=== PATIENT | female | born 1955 | race Caucasian/White ===

== ENCOUNTER → 2018-07-23 07:44 | Outpatient (CLI) | payer OTHER, SELFPAY ==
--- NOTE | 2018-07-23 | DI.MG.S_ITS ---
BILATERAL DIGITAL SCREENING MAMMOGRAM 3D/2D WITH CAD: 07/23/2018 CLINICAL: Routine screening. Comparison is made to exams dated: 06/21/2017 mammogram, 06/10/2015 mammogram, and 08/10/2013 mammogram - [facility]. The tissue of both breasts is heterogeneously dense. This may lower the sensitivity of mammography. Current study was also evaluated with a Computer Aided Detection (CAD) system. No significant masses, calcifications, or other findings are seen in either breast. There has been no significant interval change. IMPRESSION: NEGATIVE There is no mammographic evidence of malignancy. A 1 year screening mammogram is recommended. This exam was interpreted at Station ID: [id number]. NOTE: For mammograms, a report in lay terms will be sent to the patient. Approximately 15% of breast malignancies will not be visualized mammographically. In the management of a palpable breast mass, a negative mammogram must not discourage biopsy of a clinically suspicious lesion. Electronically Signed By: Gerardo young/hellen:07/23/2018 09:48:17 copy to: EARNEST PUENTES copy to: Magaly Spencer letter sent: Normal Exam ACR BI-RADS Category 1: Negative [id number]
== END ==
PROVIDERS: PCP Internal Medicine; Visit Provider Naturopath
DX: Z12.31 Encounter for screening mammogram for malignant neoplasm of breast (principal)
CPT/HCPCS: 77063; 77067

== ENCOUNTER → 2018-11-12 08:02 | Outpatient (CLI) | payer OTHER, SELFPAY ==
[2018-11-12 08:56] LABS: Add Manual Diff / Slide Review NO; Basophils Absolute Auto 0 /uL (0-100); Basophils Percent Auto 0.6 % (0-2); Eosinophils Absolute Auto 100 /uL (0-450); Eosinophils Percent Auto 1.8 % (2-4); Hematocrit 37.2 % (36-46); Hemoglobin 12.5 g/dL (12.0-16.0); Lymphocytes Absolute Auto 1600 /uL (1100-4500); Lymphocytes Percent Auto 39.8 % (25-40); Mean Corpuscular HGB Conc 33.6 % (30-36); Mean Corpuscular Hemoglobin 28.8 PG (26-34); Mean Corpuscular Volume 85.7 fL (80-100); Monocytes Absolute Auto 400 /uL (0-900); Monocytes Percent Auto 8.6 % (3-14); Neutrophils Absolute Auto 2000 /uL (1500-7000); Neutrophils Percent Auto 49.2 % (50-75); Platelet Count 212 X10^3/uL (150-400); Red Blood Cell Count 4.35 X10^6/uL (4.0-5.2); Red Cell Distribution Width 13.6 % (11.6-14.8); White Blood Cell Count 4.1 X10^3/uL (4.5-11.0)
[2018-11-12 09:35] LABS: Alanine Aminotransferase 51 IU/L (9-52); Albumin 4.3 g/dL (3.5-5.0); Albumin Globulin Ratio 1.3 (1.0-2.8); Alkaline Phosphatase 71 U/L (38-126); Aspartate Aminotransferase 42 IU/L (14-36); Bilirubin Total 0.4 mg/dL (0.2-1.3); Blood Urea Nitrogen 16 mg/dL (7-17); Calcium 9.8 mg/dL (8.4-10.2); Carbon Dioxide 28 mmol/L (22-32); Chloride 101 mmol/L (98-107); Cholesterol 178 mg/dL (140-199); Estimated Glomerular Filt Rate > 60.0 mL/min (>60); Globulin 3.2 g/dL (1.7-4.1); Glucose 81 mg/dL (80-110); HEMOLYSIS < 15 (0-50); Potassium 4.4 mmol/L (3.4-5.1); Total Protein 7.5 g/dL (6.3-8.2); Triglycerides 79 mg/dL (35-150)
[2018-11-12 09:37] LABS: HDL Cholesterol 69 mg/dL (40-60); LDL Cholesterol Calculated 93 mg/dL (<100); Sodium 137 mmol/L (137-145)
[2018-11-12 10:11] LABS: Free T3, Triiodothyronine Free 3.06 pg/mL (2.77-5.27); Free T4, Direct Thyroxine 0.68 ng/dL (0.78-2.19)
[2018-11-12 10:25] LABS: Thyroid Stimulating Hormone 1.93 uIU/mL (0.47-4.68)
== END ==
PROVIDERS: PCP Internal Medicine; Visit Provider Naturopath
DX: Z00.00 Encounter for general adult medical examination without abnormal findings (principal); E03.9 Hypothyroidism, unspecified
CPT/HCPCS: 36415; 80053; 80061; 84439; 84443; 84481; 85025

== ENCOUNTER 2018-11-14 08:24 | Day surgery (SDC) | payer OTHER, SELFPAY ==
[2018-11-14 08:54] VITALS: BMI 19.8
[2018-11-14 09:03] VITALS: BP 125/80; PULSE 87; RESP 15; TEMP 36.8; O2SAT 99
[2018-11-14] MEDS: SODIUM CHLORIDE 0.9% 1,000 ML 200 ML IV (09:05)
[2018-11-14] MEDS: MIDAZOLAM 5 MG/5 ML VIAL IV (10:05)
[2018-11-14] MEDS: fentaNYL 250 MCG/5 ML INJ IV (10:06)
--- NOTE | 2018-11-14 10:29 | PM.HP.1 ---
History of Present Illness Date Patient Seen: 11/14/18 Time Patient Seen: 10:22 Chief complaint: Colonoscopy Narrative: Patient is a woman here for a screening colonoscopy. Her last exam was 6 years ago. She has a history of polyps. No family history of colon cancer. Patient History Surgical History History of cataract removal with insertion of prosthetic lens History of third molar tooth extraction Status post hemorrhoidectomy Status post parathyroidectomy Status post tubal ligation Status post vaginal hysterectomy (08/01/15) Meds Home Medications Medication Instructions Recorded Confirmed Type multivitamin 1 tab PO DAILY #0 10/20/11 11/14/18 History Alphagan P 1 drp EYE-LEFT BID #0 08/05/16 11/14/18 History Nature-Throid 97.5 mg PO DAILY #0 08/05/16 11/14/18 History Xolegel 1 nichole TOPICAL DAILY PRN #0 08/05/16 11/14/18 History albuterol sulfate [Ventolin HFA] 2 puff INH Q4HP PRN #1 inh 08/05/16 11/14/18 Rx [CMP ESTRADIOL] 0.2 % VAGINAL SEE INSTRUCTIONS #30 09/23/17 Rx gm estradiol 25 mcg VAGINAL WEEKLY 11/14/18 11/14/18 History oxytocin 1 spray 11/14/18 History sertraline 25 mg PO DAILY 11/14/18 11/14/18 History Allergies Allergy/AdvReac Type Severity Reaction Status Date / Time minocycline Allergy Severe headach, Verified 11/14/18 08:44 nausea, hearing loss NSAIDS (Non-Steroidal Allergy Severe HIVES, Verified 11/14/18 08:44 Anti-Inflamma LIP/EYE/FACIAL SWELLING, CHEST TIGHTNESS hydrocodone [HYDROCODONE] Allergy Intermediate NAUSEA, Verified 11/14/18 08:44 DOES NOT WORK AGAINST PAIN adhesive tape [ADHESIVE TAPE] Allergy Mild rash Verified 11/14/18 08:44 aspirin Allergy Mild HIVES Verified 11/14/18 08:44 gluten Allergy Mild INTOLERANT Verified 11/14/18 08:44 guaifenesin AdvReac Severe NAUSEA/DIZZ Verified 11/14/18 08:44 Y tramadol [TRAMADOL] AdvReac Unknown SHALLOW Verified 11/14/18 08:44 BREATHING NAUSEA VOMITING VERTIGO Review of Systems Review of Systems All systems reviewed & are unremarkable except as noted in HPI and below Respiratory Comments: Has breathing issues when she gets respiratory tract infection and has to use an inhaler Gastrointestinal Comments: Severe nausea after anesthesia Endocrine Comments: Hypothyroid and hyperparathyroidism treated in the past Exam Vital Signs (past 8 hours): - 11/14/18 09:03 Temperature 98.3 F Pulse Rate 87 Respiratory Rate 15 Blood Pressure 125/80 Pulse Oximetry 99 Oxygen Delivery Method Room Air Narrative Exam Narrative: Very thin cooperative woman in no apparent distress. Her lungs are clear to auscultation no rales or rhonchi heart regular rate and rhythm without murmur gallop. Abdomen is scaphoid soft nontender without mass. Patient is alert and oriented x3. Assessment & Plan Assessment & Plan narrative: Patient for a screening colonoscopy. She has personal history of polyps. I have discussed the procedure and the rationale with the patient including risks of bleeding, perforation which would necessitate a major operation, failure to find remove all lesions and the potential to tattoo. They appeared to understand and wished to proceed.
[2018-11-14] MEDS: ONDANSETRON 4 MG/2 ML INJ IV (10:30)
[2018-11-14] MEDS: SCOPOLAMINE 1 PATCH TOP (10:31)
--- NOTE | 2018-11-14 11:06 | PM.OP.ENDO ---
Operative Date/Time/Diagnoses Date of procedure: 11/14/18 Time of procedure: 11:07 Pre-op diagnosis: Screening exam. Last colonoscopy 6 years ago. Personal history of polyps. Post-op diagnosis: same (Sigmoid diverticulosis occasional. Very tortuous colon) Procedure & Clinicians Study performed: Colonoscopy Same procedure as scheduled: Yes Indications: Screening Surgeon: Gerardo Marinelli Procedure Notes SCOAP/Timeout: Performed Procedure in detail: The patient was placed in the left lateral decubitus position and underwent IV sedation directed by the surgeon consisting of fentanyl and Versed. Digital exam was unremarkable. The scope was inserted and advanced through the rectum into the sigmoid, descending, transverse, and ascending colon. The colon was quite tortuous and I did note some diverticulosis within the sigmoid. The cecum was reached identified by the ileocecal valve and the appendiceal opening. The ileocecal valve was successfully cannulated. The terminal ileum was normal in appearance. The scope was gradually brought out. No Polyps were found. The scope ultimately was retroflexed in the rectum. The appearance was normal. The scope was removed and the patient tolerated the procedure well. prep was good. Scope withdrawal time: 12 minutes Sedation minutes: 28 Findings: diverticulosis Specimen(s): none sent Complications: none Recommendations: Colonscopy in 5 years (Due to personal history of polyps) Follow up: as needed Disposition: PACU
[2018-11-14 11:08] VITALS: BP 114/71; PULSE 85; RESP 16; TEMP 36.3; O2SAT 96
[2018-11-14 11:13] VITALS: BP 112/74; PULSE 73; RESP 12; O2SAT 96
[2018-11-14 11:18] VITALS: BP 109/75; PULSE 80; RESP 15; O2SAT 98
[2018-11-14 11:30] VITALS: BP 116/74; PULSE 68; RESP 16; TEMP 36.5; O2SAT 95
[2018-11-14 11:55] VITALS: BP 109/70; PULSE 69; RESP 15; TEMP 36.4; O2SAT 95
--- NOTE | 2018-11-14 12:50 | SUR.PHASEII ---
1210 pt dressed, steady on feet ready to go home
--- NOTE | 2018-11-14 12:51 | SUR.PHASEII ---
1130 pt resting, taking fluids, no co's
== END 2018-11-14 12:10 | disposition home or self-care (01) ==
PROVIDERS: PCP Naturopath; Visit Provider Specialist
PROC: 0DJD8ZZ Inspection of Lower Intestinal Tract, Via Natural or Artificial Opening Endoscopic (ICD-10-PCS; CPT 45378; principal; 2018-11-14 09:45)
DX: Z86.010 Personal history of colon polyps (principal); K57.30 Diverticulosis of large intestine without perforation or abscess without bleeding
CPT/HCPCS: 45378; 99152; 99153; J2250; J2405; J3010

== ENCOUNTER → 2018-11-28 07:16 | Outpatient (CLI) | payer OTHER, SELFPAY ==
--- NOTE | 2018-11-28 | DI.US.S_ITS ---
PROCEDURE: US ABDOMEN LIMITED INDICATIONS: ABNORMAL LIVER FUNCTION TESTS TECHNIQUE: Real-time focused scanning was performed of the liver only at clinician request, with image documentation. COMPARISON: [facility], [place], ABDOMEN LIMITED, 03/20/2011, 11:04. [facility], [place], ABDOMEN LIMITED, 03/21/2010, 9:07. FINDINGS: The liver is normal in craniocaudad length with a maximal dimension of 15.2 cm. At the posterior right hepatic lobe there is a echogenic small structure measuring 1.3 x 0.9 x 0.9 cm previously measuring 1.4 x 1.4 x 1.1 cm 03/20/11, and there is a simple cyst found measuring only 8 mm in the posterior right hepatic lobe and a second 7 mm cyst in the lateral left hepatic lobe. IMPRESSION: The echogenic focus, presumably a small hemangioma, within the right posterior hepatic segment was present in March of 2011 without significant exchange operator time. 2 incidentally noted simple cysts measuring only 8 mm in maximal dimension are also seen. No biliary distention is found, and a definite source of abnormal liver function tests is not identified. Dictated by: Rasta Scherer M.D. on 11/28/2018 at 8:24 Approved by: Rasta Scherer M.D. on 11/28/2018 at 8:27
== END ==
PROVIDERS: PCP Naturopath; Visit Provider Naturopath
DX: R94.5 Abnormal results of liver function studies (principal); K76.89 Other specified diseases of liver
CPT/HCPCS: 76705

== ENCOUNTER 2019-05-14 16:00 | Outpatient (RCR) | payer OTHER, SELFPAY ==
--- NOTE | 2019-04-14 17:40 | PT.OIE ---
Current Diagnoses Other female genital prolapse (04/14/19) Past Surgical History (Last Reviewed 11/14/18 @ 10:29 by Gerardo Marinelli MD) History of cataract removal with insertion of prosthetic lens History of third molar tooth extraction Status post hemorrhoidectomy Status post parathyroidectomy Status post tubal ligation Status post vaginal hysterectomy (08/01/15) Provider Visit Care Team Role Provider Type Angelika Casas ND Primary Care Provider Non-Staff Specialty: Naturopathy Address: [address] [place] [id number] Email: Magaly Spencer MD Attending Provider Physician Specialty: MANAGER CHINESE Address: [address] [place] [address], [id number] Email: [email or web address] Physical Therapy Initial Evaluation PT-OP-A Visit Information Start: 04/07/19 14:28 Freq: Status: Active Protocol: Document 04/07/19 17:14 [facility] (Rec: 04/14/19 17:38 [facility] [email or web address]) Out-Patient Physical Therapy Visit Information Visit Information Visit Type Initial Evaluation Visit Note 64 year old female s/o total hysterectomy and anterior posterior repair 07/22/15 who is now experiencing pelvic heaviness again and cystecele that began this past year. Visit Start Time 16:00 Visit Stop Time 16:45 Total Visit Minutes 45 Visit Number 1 Evaluation Information Evaluation Date 04/07/19 PT-OP-B Current Condition Start: 04/07/19 14:28 Freq: Status: Active Protocol: Document 04/07/19 17:14 [facility] (Rec: 04/14/19 17:38 [facility] [email or web address]) Current Condition History of Current Condition Onset Date August 2018 Current Complaints pelvic heaviness, pressure, urgency, frequent voiding History of Current Condition Andressa is a 64 year old female who was seen previously in PT in 2016 after her hysterectomy and anterior posterior repair. At that time she did well with PT and felt her pelvic floor was much stronger. She was sexually active and remarried. Unfortunatly her last year and she stopped exercising with her grief and her muscles began weakening. She started noticing the bladder bulge and pelvic heaviness again this past winter. Her goals include strengthening her pelvic floor and reducing pelvic pressure as she would like to get active again. Other past medical history includes asthma, history of back and neck pain, thyroid disorder, dizziness, blood clots, osteopenia Current Functional Impairments (Reported) Functional Limitations- ADL's limited with any ADL's that require lifting, frequent urination and urgency PT-OP-C Subjective Start: 04/07/19 14:28 Freq: Status: Active Protocol: Document 04/07/19 17:14 [facility] (Rec: 04/14/19 17:38 [facility] [id number]) Patient Questionnaires Pelvic Pain and Urgency/Frequency Patient Symptom Scale Pelvic Pain Score 12 OP-PT Pain Assessment Pain Assessment Grid Paper Pain Assessment Grid Completed Yes Location pelvic floor Pain Location Details pelvic floor pressure Intensity 2 Scale Used Numeric (1 - 10) Description Aching Tightness Frequency Frequent Pain Aggravating Factors ADL's Exercise Standing Walking Other Pain Aggravating Factors lifting PT-OP-I Pelvic Floor Start: 04/07/19 14:28 Freq: Status: Active Protocol: Document 04/07/19 17:14 [facility] (Rec: 04/14/19 17:38 [facility] [email or web address]) Pelvic Floor Assessment Urine Pelvic Floor Surgery Yes Urinary Symptoms Urge Sensation Incomplete Emptying Leakage Size Small Leakage Cause Cough Urge Voiding Frequency every hour Pelvic Clock Pelvic Clock 12-3 Atrophy Pelvic Clock 3-6 Atrophy Pelvic Clock 6-9 Atrophy Pelvic Clock 9-12 Atrophy Prolapse Cystocele Grade 2 SEMG (uV) Baseline 1.5 10 Second Contraction 10.0 Recruitment Pattern Fair Relaxation Fair Holding Fair Stability of Hold Fair SEMG Stability of Rest Fair Contraction Ability Voluntary Contraction Weak Voluntary Relaxation Weak Manual Muscle Testing Left 4 Manual Muscle Testing Right 3 Manual Muscle Testing Anterior 3 Manual Muscle Testing Posterior 2 Muscle Endurance (Seconds) 6 Comments Pelvic Floor Comments posterior wall weakness and decreased endurance PT-OP-Q Treatments Start: 04/14/19 17:39 Freq: Status: Active Protocol: Document 04/07/19 16:00 [facility] (Rec: 04/14/19 17:40 [facility] [email or web address]) Therapeutic Exercises Supine Exercises 2 Supine Exercise Name roll ins with ball Reps/Minutes x 10 1 Supine Exercise Name pelvic floor long holds Reps/Minutes x 10 PT-OP-T Assessment and Plan Start: 04/07/19 14:28 Freq: Status: Active Protocol: Document 04/07/19 17:14 [facility] (Rec: 04/14/19 17:38 [facility] [email or web address]) Physical Therapy Assessment Goals Three Impairment pelvic pressure/heaviness and pain 2/10 Manager [place] Goal (LTG) Andressa has overall reduced c/ o pelvic pressure and pain and is no longer c/o heaviness Two Impairment Decreased pelvic floor endurance Short Term Goal (STG) Andressa is able to sustain a contraction x 10 seconds in supine STG Duration 4 weeks Manager [place] Goal (LTG) Andressa is able to sustain a contraction x 10 seconds in standing LTG Duration 8 weeks One Impairment pelvic floor weakness Manager [place] Goal (LTG) Improve pelvic floor strength to 4/5 MMT for all parts of the levator ani LTG Duration 8 weeks Assessment Summary Assessment Andressa presents to physical therapy today with symptoms of weakened pelvic floor and pelvic pressure and heaviness. She underwent a total hysterectomy and anterio/ posterior repair in July 2015. She did really after this and reports her symptoms of pelvic pressue were gone. She remaried during this time and was able to resume intercourse without any pain. Unfortunatly her new after a year and she went into a grieving period where she did not feel like exercising at all. This last winter is when she began to want to start exercising again. She took a class that involved fast abdominal exercises and this seemed to flare up her pelvic floor and the heaviness returned. With examination today she is a 3/ 5 MMT right side and anterior pelvic floor, a 4/5 MMT on the left lateral wall, and a 2/5 in the posterior wall. She lacks endurance of her pelvic floor. She is also c/o urgency and frequency voiding. Treatment will focus on pelvic floor strengthening, endurance training, and lower abdominal stabilization without straining down on her pelvic floor Physical Therapy Plan Frequency and Duration Frequency of Treatment 1x/Week Duration of Treatment 8 Plan of Care Start Date 04/07/19 Plan of Care End Date 06/09/19 Therapeutic Interventions Therapeutic Interventions Home Exercise Program Manual Therapy Neuromuscular Re-education Patient/Caregiver Education Self-Care/Home Management Soft Tissue Mobilization Therapeutic Exercises Modalities Biofeedback
--- NOTE | 2019-04-14 17:40 | PT.OPPOC ---
Current Diagnoses Other female genital prolapse (04/14/19) Provider Visit Care Team Role Provider Type Angelika Casas ND Primary Care Provider Non-Staff Specialty: Naturopathy Address: [address] [place] [address], [address] Email: Magaly Spencer MD Attending Provider Physician Specialty: CHIEF POWER DISPATCHER Address: [address] [place] [address], [address] Email: [email or web address] Plan Of Care PT-OP-T Assessment and Plan Start: 04/07/19 14:28 Freq: Status: Active Protocol: Document 04/07/19 17:14 [facility] (Rec: 04/14/19 17:38 [facility] [email or web address]) Physical Therapy Assessment Goals Three Impairment pelvic pressure/heaviness and pain 2/10 Eligibility Analyst Goal (LTG) Andressa has overall reduced c/ o pelvic pressure and pain and is no longer c/o heaviness Two Impairment Decreased pelvic floor endurance Short Term Goal (STG) Andressa is able to sustain a contraction x 10 seconds in supine STG Duration 4 weeks Jail Goal (LTG) Andressa is able to sustain a contraction x 10 seconds in standing LTG Duration 8 weeks One Impairment pelvic floor weakness Jail Goal (LTG) Improve pelvic floor strength to 4/5 MMT for all parts of the levator ani LTG Duration 8 weeks Assessment Summary Assessment Andressa presents to physical therapy today with symptoms of weakened pelvic floor and pelvic pressure and heaviness. She underwent a total hysterectomy and anterior posterior repair in July 2015. She did really after this and reports her symptoms of pelvic pressure were gone. She remarried during this time and was able to resume intercourse without any pain. Unfortunately her new after a year and she went into a grieving period where she did not feel like exercising at all. This last winter is when she began to want to start exercising again. She took a class that involved fast abdominal exercises and this seemed to flare up her pelvic floor and the heaviness returned. With examination today she is a 3/ 5 MMT right side and anterior pelvic floor, a 4/5 MMT on the left lateral wall, and a 2/5 in the posterior wall. She lacks endurance of her pelvic floor. She is also c/o urgency and frequency voiding. Treatment will focus on pelvic floor strengthening, endurance training, and lower abdominal stabilization without straining down on her pelvic floor Physical Therapy Plan Frequency and Duration Frequency of Treatment 1x/Week Duration of Treatment 8 Plan of Care Start Date 04/07/19 Plan of Care End Date 06/09/19 Therapeutic Interventions Therapeutic Interventions Home Exercise Program Manual Therapy Neuromuscular Re-education Patient/Caregiver Education Self-Care/Home Management Soft Tissue Mobilization Therapeutic Exercises Modalities Biofeedback Plan of Care Dates Plan of Care Start Date 04/07/19 Plan of Care End Date 06/09/19 Please Sign and Return: I have reviewed this Plan of Care and certify that the skilled therapy services above are required to meet the patient?s needs. Physician Signature Date Printed Name and Credentials Clinical Instructor Signature Printed Name and Credentials
--- NOTE | 2019-04-15 10:16 | PT.OTN ---
Current Diagnoses Other female genital prolapse (04/14/19) Physical Therapy Treatment Note PT-OP-A Visit Information Start: 04/07/19 14:28 Freq: Status: Active Protocol: Document 04/14/19 16:00 [facility] (Rec: 04/15/19 10:11 [facility] [id number]) Out-Patient Physical Therapy Visit Information Visit Information Visit Type Treatment Note Visit Start Time 16:00 Visit Stop Time 16:45 Total Visit Minutes 45 Visit Number 2 PT-OP-B Current Condition Start: 04/07/19 14:28 Freq: Status: Active Protocol: Document 04/07/19 17:14 [facility] (Rec: 04/14/19 17:38 [facility] [email or web address]) Current Condition History of Current Condition Onset Date August 2018 Current Complaints pelvic heaviness, pressure, urgency, frequent voiding History of Current Condition Andressa is a 64 year old female who was seen previously in PT in 2015 after her hysterectomy and anterior posterior repair. At that time she did well with PT and felt her pelvic floor was much stronger. She was sexually active and remarried. Unfortunatly her last year and she stopped exercising with her grief and her muscles began weakening. She started noticing the bladder bulge and pelvic heaviness again this past winter. Her goals include strengthening her pelvic floor and reducing pelvic pressure as she would like to get active again. Other past medical history includes asthma, history of back and neck pain, thyroid disorder, dizziness, blood clots, osteopenia Current Functional Impairments (Reported) Functional Limitations- ADL's limited with any ADL's that require lifting, frequent urination and urgency PT-OP-C Subjective Start: 04/07/19 14:28 Freq: Status: Active Protocol: Document 04/14/19 16:00 [facility] (Rec: 04/15/19 10:11 [facility] [id number]) OP-PT Subjective Patient Comments Patient Comments Andressa reports she is tryingto get back into a routine with her exercises PT-OP-I Pelvic Floor Start: 04/07/19 14:28 Freq: Status: Active Protocol: Document 04/07/19 17:14 [facility] (Rec: 04/14/19 17:38 [facility] [email or web address]) Pelvic Floor Assessment Urine Pelvic Floor Surgery Yes Urinary Symptoms Urge Sensation,Incomplete Emptying Leakage Size Small Leakage Cause Cough,Urge Voiding Frequency every hour Pelvic Clock Pelvic Clock 12-3 Atrophy Pelvic Clock 3-6 Atrophy Pelvic Clock 6-9 Atrophy Pelvic Clock 9-12 Atrophy Prolapse Cystocele Grade 2 SEMG (uV) Baseline 1.5 10 Second Contraction 10.0 Recruitment Pattern Fair Relaxation Fair Holding Fair Stability of Hold Fair SEMG Stability of Rest Fair Contraction Ability Voluntary Contraction Weak Voluntary Relaxation Weak Manual Muscle Testing Left 4 Manual Muscle Testing Right 3 Manual Muscle Testing Anterior 3 Manual Muscle Testing Posterior 2 Muscle Endurance (Seconds) 6 Comments Pelvic Floor Comments posterior wall weakness and decreased endurance PT-OP-Q Treatments Start: 04/14/19 17:39 Freq: Status: Active Protocol: Document 04/14/19 16:00 [facility] (Rec: 04/15/19 10:14 [facility] [id number]) Therapeutic Exercises Supine Exercises 5 Supine Exercise Name templates for eccentric control and coordination 4 Supine Exercise Name quick pelvic floor contractions Reps/Minutes 2 x 10 reps 3 Supine Exercise Name Roll outs with theraband Reps/Minutes 3 x 10 reps 2 Supine Exercise Name roll ins with ball Reps/Minutes 3 x 10 1 Supine Exercise Name pelvic floor long holds Reps/Minutes x 10 Sidelying Exercises 1 Sidelying Exercise Name clam shell Reps/Minutes 3 x 10 reps Neuro Re-Education Treatment Other Activities 1 Details EMG biofeedback neuromuscular awareness of pelvic floor contractions Comments relaxed awareness with resting tone, luther template for contraction of the anterior pelvic floor Self-Care/Home Management Treatment Education Patient Education Home Exercise Program PT-OP-T Assessment and Plan Start: 04/07/19 14:28 Freq: Status: Active Protocol: Document 04/14/19 16:00 [facility] (Rec: 04/15/19 10:11 [facility] [id number]) Physical Therapy Assessment Assessment Summary Assessment Some increase in endurance today, quick contractions are difficult to do in 2 seconds. Added in eccentric control and coordination Physical Therapy Plan Frequency and Duration Frequency of Treatment 1x/Week Duration of Treatment 8 Plan of Care Start Date 04/07/19 Plan of Care End Date 06/09/19 Next Visit Focus/Plan Next Note Type Treatment Note Next Visit Plan progress pelvic floor endurance, cat cow and TA facilitation techniques
--- NOTE | 2019-04-26 20:31 | PT.OTN ---
Current Diagnoses Other female genital prolapse (04/23/19) Physical Therapy Treatment Note PT-OP-A Visit Information Start: 04/07/19 14:28 Freq: Status: Active Protocol: Document 04/23/19 16:00 [facility] (Rec: 04/26/19 20:31 [facility] [email or web address]) Out-Patient Physical Therapy Visit Information Visit Information Visit Type Treatment Note Visit Start Time 16:00 Visit Stop Time 16:45 Total Visit Minutes 45 Visit Number 3 PT-OP-B Current Condition Start: 04/07/19 14:28 Freq: Status: Active Protocol: Document 04/07/19 17:14 [facility] (Rec: 04/14/19 17:38 [facility] [id number]) Current Condition History of Current Condition Onset Date August 2018 Current Complaints pelvic heaviness, pressure, urgency, frequent voiding History of Current Condition Andressa is a 64 year old female who was seen previously in PT in 2015 after her hysterectomy and anterior posterior repair. At that time she did well with PT and felt her pelvic floor was much stronger. She was sexually active and remarried. Unfortunatly her last year and she stopped exercising with her grief and her muscles began weakening. She started noticing the bladder bulge and pelvic heaviness again this past winter. Her goals include strengthening her pelvic floor and reducing pelvic pressure as she would like to get active again. Other past medical history includes asthma, history of back and neck pain, thyroid disorder, dizziness, blood clots, osteopenia Current Functional Impairments (Reported) Functional Limitations- ADL's limited with any ADL's that require lifting, frequent urination and urgency PT-OP-C Subjective Start: 04/07/19 14:28 Freq: Status: Active Protocol: Document 04/23/19 16:00 [facility] (Rec: 04/26/19 20:31 [facility] [email or web address]) OP-PT Subjective Patient Comments Patient Comments has been doing legs up the wall stretch and her exercises PT-OP-I Pelvic Floor Start: 04/07/19 14:28 Freq: Status: Active Protocol: Document 04/07/19 17:14 [facility] (Rec: 04/14/19 17:38 [facility] [email or web address]) Pelvic Floor Assessment Urine Pelvic Floor Surgery Yes Urinary Symptoms Urge Sensation,Incomplete Emptying Leakage Size Small Leakage Cause Cough,Urge Voiding Frequency every hour Pelvic Clock Pelvic Clock 12-3 Atrophy Pelvic Clock 3-6 Atrophy Pelvic Clock 6-9 Atrophy Pelvic Clock 9-12 Atrophy Prolapse Cystocele Grade 2 SEMG (uV) Baseline 1.5 10 Second Contraction 10.0 Recruitment Pattern Fair Relaxation Fair Holding Fair Stability of Hold Fair SEMG Stability of Rest Fair Contraction Ability Voluntary Contraction Weak Voluntary Relaxation Weak Manual Muscle Testing Left 4 Manual Muscle Testing Right 3 Manual Muscle Testing Anterior 3 Manual Muscle Testing Posterior 2 Muscle Endurance (Seconds) 6 Comments Pelvic Floor Comments posterior wall weakness and decreased endurance PT-OP-Q Treatments Start: 04/14/19 17:39 Freq: Status: Active Protocol: Document 04/23/19 16:00 [facility] (Rec: 04/26/19 20:31 [facility] [email or web address]) Therapeutic Exercises Supine Exercises 6 Supine Exercise Name TA with marches 5 Supine Exercise Name templates for eccentric control and coordination 4 Supine Exercise Name quick pelvic floor contractions Reps/Minutes 2 x 10 reps 3 Supine Exercise Name Roll outs with theraband Reps/Minutes 3 x 10 reps 2 Supine Exercise Name roll ins with ball Reps/Minutes 3 x 10 1 Supine Exercise Name pelvic floor long holds Reps/Minutes x 10 Sidelying Exercises 1 Sidelying Exercise Name clam shell Reps/Minutes 3 x 10 reps Neuro Re-Education Treatment Other Activities 1 Details EMG biofeedback neuromuscular awareness of pelvic floor contractions Comments relaxed awareness with resting tone, luther template for contraction of the anterior pelvic floor PT-OP-T Assessment and Plan Start: 04/07/19 14:28 Freq: Status: Active Protocol: Document 04/23/19 16:00 [facility] (Rec: 04/26/19 20:31 [facility] [email or web address]) Physical Therapy Assessment Assessment Summary Assessment Average on EMG biofeedback today was 8.9 uv and max of 24 uv. Good improvements with endurance Physical Therapy Plan Next Visit Focus/Plan Next Note Type Treatment Note Next Visit Plan progress TA stabilization as tolerated and work on trying pelvic floor contractions in prone
--- NOTE | 2019-04-30 16:59 | PT.OTN ---
Current Diagnoses Other female genital prolapse (04/30/19) Physical Therapy Treatment Note PT-OP-A Visit Information Start: 04/07/19 14:28 Freq: Status: Active Protocol: Document 04/30/19 16:52 [facility] (Rec: 04/30/19 16:59 [facility] [email or web address]) Out-Patient Physical Therapy Visit Information Visit Information Visit Type Treatment Note Visit Start Time 16:00 Visit Stop Time 16:45 Total Visit Minutes 45 Visit Number 4 PT-OP-B Current Condition Start: 04/07/19 14:28 Freq: Status: Active Protocol: Document 04/07/19 17:14 [facility] (Rec: 04/14/19 17:38 [facility] [email or web address]) Current Condition History of Current Condition Onset Date August 2018 Current Complaints pelvic heaviness, pressure, urgency, frequent voiding History of Current Condition Andressa is a 64 year old female who was seen previously in PT in 2015 after her hysterectomy and anterior posterior repair. At that time she did well with PT and felt her pelvic floor was much stronger. She was sexually active and remarried. Unfortunatly her last year and she stopped exercising with her grief and her muscles began weakening. She started noticing the bladder bulge and pelvic heaviness again this past winter. Her goals include strengthening her pelvic floor and reducing pelvic pressure as she would like to get active again. Other past medical history includes asthma, history of back and neck pain, thyroid disorder, dizziness, blood clots, osteopenia Current Functional Impairments (Reported) Functional Limitations- ADL's limited with any ADL's that require lifting, frequent urination and urgency PT-OP-C Subjective Start: 04/07/19 14:28 Freq: Status: Active Protocol: Document 04/30/19 16:52 [facility] (Rec: 04/30/19 16:59 [facility] [email or web address]) OP-PT Subjective Patient Comments Patient Comments Andressa reports she felt a bulge in the shower this am but she has been working hard on her exercises PT-OP-I Pelvic Floor Start: 04/07/19 14:28 Freq: Status: Active Protocol: Document 04/07/19 17:14 [facility] (Rec: 04/14/19 17:38 [facility] [email or web address]) Pelvic Floor Assessment Urine Pelvic Floor Surgery Yes Urinary Symptoms Urge Sensation,Incomplete Emptying Leakage Size Small Leakage Cause Cough,Urge Voiding Frequency every hour Pelvic Clock Pelvic Clock 12-3 Atrophy Pelvic Clock 3-6 Atrophy Pelvic Clock 6-9 Atrophy Pelvic Clock 9-12 Atrophy Prolapse Cystocele Grade 2 SEMG (uV) Baseline 1.5 10 Second Contraction 10.0 Recruitment Pattern Fair Relaxation Fair Holding Fair Stability of Hold Fair SEMG Stability of Rest Fair Contraction Ability Voluntary Contraction Weak Voluntary Relaxation Weak Manual Muscle Testing Left 4 Manual Muscle Testing Right 3 Manual Muscle Testing Anterior 3 Manual Muscle Testing Posterior 2 Muscle Endurance (Seconds) 6 Comments Pelvic Floor Comments posterior wall weakness and decreased endurance PT-OP-Q Treatments Start: 04/14/19 17:39 Freq: Status: Active Protocol: Document 04/30/19 16:52 [facility] (Rec: 04/30/19 16:59 [facility] [email or web address]) Therapeutic Exercises Supine Exercises 8 Supine Exercise Name TA with heel slides Reps/Minutes x 10 7 Supine Exercise Name TA level 1 B Reps/Minutes x 10 6 Supine Exercise Name TA with marches 5 Supine Exercise Name templates for eccentric control and coordination 4 Supine Exercise Name quick pelvic floor contractions Reps/Minutes 2 x 10 reps 3 Supine Exercise Name Roll outs with theraband Reps/Minutes 3 x 10 reps 2 Supine Exercise Name roll ins with ball Reps/Minutes 3 x 10 1 Supine Exercise Name pelvic floor long holds Reps/Minutes x 10 Standing Exercises 1 Standing Exercise Name standing pelvic floor contractions Reps/Minutes 5 seconds on 10 seconds off PT-OP-T Assessment and Plan Start: 04/07/19 14:28 Freq: Status: Active Protocol: Document 04/30/19 16:52 [facility] (Rec: 04/30/19 16:59 [facility] [email or web address]) Physical Therapy Assessment Assessment Summary Assessment added in standing pelvic floor activation today and Andressa was able to sustain a contraction for 5 seconds in standing. Physical Therapy Plan Frequency and Duration Frequency of Treatment 1x/Week Duration of Treatment 8 Plan of Care Start Date 04/07/19 Plan of Care End Date 06/09/19 Therapeutic Interventions Therapeutic Interventions Home Exercise Program,Manual Therapy,Neuromuscular Re- education,Patient/Caregiver Education,Self-Care/Home Management,Soft Tissue Mobilization,Therapeutic Exercises Next Visit Focus/Plan Next Note Type Treatment Note Next Visit Plan begin adding in dynamic standing exercises and prone over ball hip abduction, bridges
--- NOTE | 2019-05-07 17:00 | PT.OTN ---
Current Diagnoses Other female genital prolapse (05/07/19) Physical Therapy Treatment Note PT-OP-A Visit Information Start: 04/07/19 14:28 Freq: Status: Active Protocol: Document 05/07/19 16:55 [facility] (Rec: 05/07/19 17:00 [facility] [id number]) Out-Patient Physical Therapy Visit Information Visit Information Visit Type Treatment Note Visit Start Time 16:05 Visit Stop Time 16:45 Total Visit Minutes 40 Visit Number 5 PT-OP-B Current Condition Start: 04/07/19 14:28 Freq: Status: Active Protocol: Document 04/07/19 17:14 [facility] (Rec: 04/14/19 17:38 [facility] [id number]) Current Condition History of Current Condition Onset Date August 2018 Current Complaints pelvic heaviness, pressure, urgency, frequent voiding History of Current Condition Andressa is a 64 year old female who was seen previously in PT in 2015 after her hysterectomy and anterior posterior repair. At that time she did well with PT and felt her pelvic floor was much stronger. She was sexually active and remarried. Unfortunatly her last year and she stopped exercising with her grief and her muscles began weakening. She started noticing the bladder bulge and pelvic heaviness again this past winter. Her goals include strengthening her pelvic floor and reducing pelvic pressure as she would like to get active again. Other past medical history includes asthma, history of back and neck pain, thyroid disorder, dizziness, blood clots, osteopenia Current Functional Impairments (Reported) Functional Limitations- ADL's limited with any ADL's that require lifting, frequent urination and urgency PT-OP-C Subjective Start: 04/07/19 14:28 Freq: Status: Active Protocol: Document 05/07/19 16:55 [facility] (Rec: 05/07/19 17:00 [facility] [email or web address]) OP-PT Subjective Patient Comments Patient Comments Andressa reports she has been working on her exercises. She still feels the pressure in right behind the pubic bone PT-OP-I Pelvic Floor Start: 04/07/19 14:28 Freq: Status: Active Protocol: Document 04/07/19 17:14 [facility] (Rec: 04/14/19 17:38 [facility] [email or web address]) Pelvic Floor Assessment Urine Pelvic Floor Surgery Yes Urinary Symptoms Urge Sensation,Incomplete Emptying Leakage Size Small Leakage Cause Cough,Urge Voiding Frequency every hour Pelvic Clock Pelvic Clock 12-3 Atrophy Pelvic Clock 3-6 Atrophy Pelvic Clock 6-9 Atrophy Pelvic Clock 9-12 Atrophy Prolapse Cystocele Grade 2 SEMG (uV) Baseline 1.5 10 Second Contraction 10.0 Recruitment Pattern Fair Relaxation Fair Holding Fair Stability of Hold Fair SEMG Stability of Rest Fair Contraction Ability Voluntary Contraction Weak Voluntary Relaxation Weak Manual Muscle Testing Left 4 Manual Muscle Testing Right 3 Manual Muscle Testing Anterior 3 Manual Muscle Testing Posterior 2 Muscle Endurance (Seconds) 6 Comments Pelvic Floor Comments posterior wall weakness and decreased endurance PT-OP-Q Treatments Start: 04/14/19 17:39 Freq: Status: Active Protocol: Document 05/07/19 16:55 [facility] (Rec: 05/07/19 17:00 [facility] [email or web address]) Therapeutic Exercises Supine Exercises 8 Supine Exercise Name TA with heel slides Reps/Minutes x 10 7 Supine Exercise Name TA level 1 B Reps/Minutes x 10 6 Supine Exercise Name TA with marches 5 Supine Exercise Name templates for eccentric control and coordination 4 Supine Exercise Name quick pelvic floor contractions Reps/Minutes 2 x 10 reps 2 Supine Exercise Name roll ins with ball Reps/Minutes 3 x 10 Sidelying Exercises 1 Sidelying Exercise Name clam shell Reps/Minutes 3 x 10 reps PT-OP-T Assessment and Plan Start: 04/07/19 14:28 Freq: Status: Active Protocol: Document 05/07/19 16:55 [facility] (Rec: 05/07/19 17:00 [facility] [email or web address]) Physical Therapy Assessment Assessment Summary Assessment long holds 10.0 uv with max of 15.1 uv. Endurance of the pelvic floor has improved Physical Therapy Plan Next Visit Focus/Plan Next Note Type Treatment Note Next Visit Plan continue for 1 additional visit then DC to a Independent HEP
--- NOTE | 2019-05-14 17:10 | PT.OTN ---
Current Diagnoses Other female genital prolapse (05/14/19) Physical Therapy Treatment Note PT-OP-A Visit Information Start: 04/07/19 14:28 Freq: Status: Active Protocol: Document 05/14/19 17:02 [facility] (Rec: 05/14/19 17:10 [facility] [id number]) Out-Patient Physical Therapy Visit Information Visit Information Visit Type Treatment Note Visit Start Time 16:00 Visit Stop Time 16:45 Total Visit Minutes 45 Visit Number 6 PT-OP-B Current Condition Start: 04/07/19 14:28 Freq: Status: Active Protocol: Document 04/07/19 17:14 [facility] (Rec: 04/14/19 17:38 [facility] [id number]) Current Condition History of Current Condition Onset Date August 2018 Current Complaints pelvic heaviness, pressure, urgency, frequent voiding History of Current Condition Andressa is a 64 year old female who was seen previously in PT in 2015 after her hysterectomy and anterior posterior repair. At that time she did well with PT and felt her pelvic floor was much stronger. She was sexually active and remarried. Unfortunatly her last year and she stopped exercising with her grief and her muscles began weakening. She started noticing the bladder bulge and pelvic heaviness again this past winter. Her goals include strengthening her pelvic floor and reducing pelvic pressure as she would like to get active again. Other past medical history includes asthma, history of back and neck pain, thyroid disorder, dizziness, blood clots, osteopenia Current Functional Impairments (Reported) Functional Limitations- ADL's limited with any ADL's that require lifting, frequent urination and urgency PT-OP-C Subjective Start: 04/07/19 14:28 Freq: Status: Active Protocol: Document 05/14/19 17:02 [facility] (Rec: 05/14/19 17:10 [facility] [id number]) OP-PT Subjective Patient Comments Patient Comments Andressa states she feels like this week she turned a corner and is feeling more sensation with her pelvic floor contractions. She feels ready to Discharge and to keep going with the exercises on her own PT-OP-I Pelvic Floor Start: 04/07/19 14:28 Freq: Status: Active Protocol: Document 04/07/19 17:14 [facility] (Rec: 04/14/19 17:38 [facility] [email or web address]) Pelvic Floor Assessment Urine Pelvic Floor Surgery Yes Urinary Symptoms Urge Sensation,Incomplete Emptying Leakage Size Small Leakage Cause Cough,Urge Voiding Frequency every hour Pelvic Clock Pelvic Clock 12-3 Atrophy Pelvic Clock 3-6 Atrophy Pelvic Clock 6-9 Atrophy Pelvic Clock 9-12 Atrophy Prolapse Cystocele Grade 2 SEMG (uV) Baseline 1.5 10 Second Contraction 10.0 Recruitment Pattern Fair Relaxation Fair Holding Fair Stability of Hold Fair SEMG Stability of Rest Fair Contraction Ability Voluntary Contraction Weak Voluntary Relaxation Weak Manual Muscle Testing Left 4 Manual Muscle Testing Right 3 Manual Muscle Testing Anterior 3 Manual Muscle Testing Posterior 2 Muscle Endurance (Seconds) 6 Comments Pelvic Floor Comments posterior wall weakness and decreased endurance PT-OP-Q Treatments Start: 04/14/19 17:39 Freq: Status: Active Protocol: Document 05/14/19 17:02 [facility] (Rec: 05/14/19 17:10 [facility] [id number]) Therapeutic Exercises Supine Exercises 8 Supine Exercise Name TA with heel slides Reps/Minutes x 10 7 Supine Exercise Name TA level 1 B Reps/Minutes x 10 6 Supine Exercise Name TA with marches 5 Supine Exercise Name templates for eccentric control and coordination 4 Supine Exercise Name quick pelvic floor contractions Reps/Minutes 2 x 10 reps 3 Supine Exercise Name Roll outs with theraband Reps/Minutes 3 x 10 reps 2 Supine Exercise Name roll ins with ball Reps/Minutes 3 x 10 1 Supine Exercise Name pelvic floor long holds Reps/Minutes x 10 Sidelying Exercises 1 Sidelying Exercise Name clam shell Reps/Minutes 3 x 10 reps Standing Exercises 3 Standing Exercise Name standing squats with pelvic floor engagement 2 Standing Exercise Name standing hip abduction 1 Standing Exercise Name standing pelvic floor contractions Reps/Minutes 5 seconds on 10 seconds off PT-OP-T Assessment and Plan Start: 04/07/19 14:28 Freq: Status: Active Protocol: Document 05/14/19 17:02 [facility] (Rec: 05/14/19 17:10 [facility] [id number]) Physical Therapy Assessment Goals Three Impairment pelvic pressure/heaviness and pain 2/10 M[facility] Goal (LTG) Andressa has overall reduced c/ o pelvic pressure and pain and is no longer c/o heaviness WILL CONTINUE TO WORK ON HEP Two Impairment Decreased pelvic floor endurance Short Term Goal (STG) Andressa is able to sustain a contraction x 10 seconds in supine GOAL MET STG Duration 4 weeks [employer] Goal (LTG) Andressa is able to sustain a contraction x 10 seconds in standing [employer] LTG Duration 8 weeks One Impairment pelvic floor weakness 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 Added in standing hip abduction and squats with pelvic floor engagement. Andressa is doing really well with her exercises and will be discharged at this time to a home program Physical Therapy Plan Discharge Physical Therapy Discharge Reasons No Longer Attending PT Discharge Comments Good progress towards goals and Andressa will continue to work at home with her exercise program.
== END 2019-05-29 12:45 | disposition home or self-care (01) ==
LOC: PHYS 16:00
PROVIDERS: PCP Naturopath; Visit Provider Obstetrics & Gynecology
DX: N81.89 Other female genital prolapse (principal)
CPT/HCPCS: 97110; 97112; 97161

== ENCOUNTER → 2020-03-29 09:45 | Outpatient (CLI) | payer OTHER, SELFPAY ==
[2020-03-29 11:59] LABS: Add Manual Diff / Slide Review NO; Basophils Absolute Auto 0 /uL (0-100); Eosinophils Absolute Auto 100 /uL (0-450); Eosinophils Percent Auto 3.1 % (2-4); Hematocrit 34.8 % (36-46); Hemoglobin 11.1 g/dL (12.0-16.0); Lymphocytes Absolute Auto 1300 /uL (1100-4500); Mean Corpuscular HGB Conc 31.9 % (30-36); Mean Corpuscular Hemoglobin 24.1 PG (26-34); Mean Corpuscular Volume 75.5 fL (80-100); Monocytes Absolute Auto 300 /uL (0-900); Monocytes Percent Auto 8.6 % (3-14); Neutrophils Absolute Auto 1900 /uL (1500-7000); Neutrophils Percent Auto 52.3 % (50-75); Platelet Count 215 X10^3/uL (150-400); Red Blood Cell Count 4.61 X10^6/uL (4.0-5.2); Red Cell Distribution Width 15.8 % (11.6-14.8); White Blood Cell Count 3.7 X10^3/uL (4.5-11.0)
[2020-03-29 12:42] LABS: Alanine Aminotransferase 22 IU/L (<35); Albumin 4.2 g/dL (3.5-5.0); Albumin Globulin Ratio 1.4 (1.0-2.8); Alkaline Phosphatase 75 U/L (38-126); Aspartate Aminotransferase 34 IU/L (14-36); BUN Creatinine Ratio 18.4 (6-22); Bilirubin Total 0.6 mg/dL (0.2-1.3); Blood Urea Nitrogen 14 mg/dL (7-17); Calcium 10.2 mg/dL (8.4-10.2); Carbon Dioxide 26 mmol/L (22-32); Chloride 103 mmol/L (98-107); Cholesterol 189 mg/dL (140-199); Estimated Glomerular Filt Rate > 60.0 mL/min (>60); Globulin 2.9 g/dL (1.7-4.1); Glucose 76 mg/dL (80-110); HDL Cholesterol 88 mg/dL (40-60); HEMOLYSIS < 15 (0-50); LDL Cholesterol Calculated 92 mg/dL (<100); Sodium 135 mmol/L (137-145); Total Protein 7.1 g/dL (6.3-8.2); Triglycerides 43 mg/dL (35-150)
[2020-03-29 12:50] LABS: Free T4, Direct Thyroxine 0.76 ng/dL (0.78-2.19)
[2020-03-29 13:04] LABS: Thyroid Stimulating Hormone 0.231 uIU/mL (0.47-4.68)
== END ==
PROVIDERS: Family Medicine; PCP Naturopath; Referring Provider Naturopath; Visit Provider Naturopath
DX: Z00.00 Encounter for general adult medical examination without abnormal findings (principal); E03.9 Hypothyroidism, unspecified
CPT/HCPCS: 36415; 80053; 80061; 84439; 84443; 84481; 85025

== ENCOUNTER → 2020-04-21 12:13 | Outpatient (CLI) | payer OTHER, SELFPAY ==
[2020-04-27 11:55] LABS: Fecal Immunochemical Test Negative (Negative)
== END ==
PROVIDERS: PCP Naturopath; Referring Provider Naturopath; Visit Provider Naturopath
DX: Z00.00 Encounter for general adult medical examination without abnormal findings (principal); D64.9 Anemia, unspecified
CPT/HCPCS: 82274

== ENCOUNTER → 2020-05-06 14:36 | Outpatient (CLI) | payer OTHER, SELFPAY ==
[2020-05-06 16:00] LABS: Add Manual Diff / Slide Review NO; Basophils Absolute Auto 100 /uL (0-100); Basophils Percent Auto 1.1 % (0-2); Eosinophils Absolute Auto 100 /uL (0-450); Eosinophils Percent Auto 1.9 % (2-4); Hematocrit 39.4 % (36-46); Hemoglobin 12.8 g/dL (12.0-16.0); Lymphocytes Absolute Auto 1900 /uL (1100-4500); Lymphocytes Percent Auto 40.1 % (25-40); Mean Corpuscular HGB Conc 32.4 % (30-36); Mean Corpuscular Hemoglobin 26.5 PG (26-34); Mean Corpuscular Volume 81.9 fL (80-100); Monocytes Absolute Auto 300 /uL (0-900); Monocytes Percent Auto 7.2 % (3-14); Neutrophils Absolute Auto 2400 /uL (1500-7000); Neutrophils Percent Auto 49.7 % (50-75); Platelet Count 232 X10^3/uL (150-400); Red Blood Cell Count 4.81 X10^6/uL (4.0-5.2); Red Cell Distribution Width 24.3 % (11.6-14.8); White Blood Cell Count 4.8 X10^3/uL (4.5-11.0)
[2020-05-06 16:44] LABS: Anisocytosis 1+
[2020-05-06 16:56] LABS: Calcium 10.1 mg/dL (8.4-10.2)
[2020-05-06 17:26] LABS: Thyroid Stimulating Hormone 0.867 uIU/mL (0.47-4.68)
[2020-05-06 17:30] LABS: Ferritin 20 ng/mL (11-264)
[2020-05-07 09:19] LABS: Parathyroid Hormone Int 46 pg/mL (15-65)
== END ==
PROVIDERS: PCP Naturopath; Referring Provider Naturopath; Visit Provider Naturopath
DX: D64.9 Anemia, unspecified (principal); E03.9 Hypothyroidism, unspecified; R79.9 Abnormal finding of blood chemistry, unspecified
CPT/HCPCS: 36415; 82310; 82728; 83970; 84443; 85025

== ENCOUNTER → 2020-05-28 09:56 | Outpatient (CLI) | payer OTHER, SELFPAY ==
--- NOTE | 2020-05-28 | DI.MG.S_ITS ---
BILATERAL DIGITAL SCREENING MAMMOGRAM 3D/2D WITH CAD: 05/28/2020 CLINICAL: Routine screening. Comparison is made to exams dated: 07/23/2018 mammogram, 06/21/2017 mammogram, and 06/10/2015 mammogram - [facility]. The tissue of both breasts is heterogeneously dense. This may lower the sensitivity of mammography. Current study was also evaluated with a Computer Aided Detection (CAD) system. No significant masses, calcifications, or other findings are seen in either breast. There has been no significant interval change. IMPRESSION: NEGATIVE There is no mammographic evidence of malignancy. A 1 year screening mammogram is recommended. This exam was interpreted at Station ID: [id number]. NOTE: For mammograms, a report in lay terms will be sent to the patient. Approximately 15% of breast malignancies will not be visualized mammographically. In the management of a palpable breast mass, a negative mammogram must not discourage biopsy of a clinically suspicious lesion. Electronically Signed By: Tim joseph/hellen:05/29/2020 00:37:47 copy to: Stefan Simmons copy to: Magaly Spencer letter sent: Normal Exam ACR BI-RADS Category 1: Negative [id number]
== END ==
PROVIDERS: PCP Naturopath; Referring Provider Naturopath; Visit Provider Naturopath
DX: Z12.31 Encounter for screening mammogram for malignant neoplasm of breast (principal)
CPT/HCPCS: 77063; 77067

== ENCOUNTER → 2021-03-07 15:39 | Outpatient (CLI) | payer MEDICARE, OTHER, SELFPAY ==
[2021-03-07 16:03] LABS: COVID19 -Nasal RAPID Negative (Negative)
== END ==
PROVIDERS: PCP Naturopath; Visit Provider Physician Assistant
DX: Z20.822 Contact with and (suspected) exposure to COVID-19 (principal); J31.2 Chronic pharyngitis
CPT/HCPCS: 87070; 87635

== ENCOUNTER → 2021-06-22 14:40 | Outpatient (CLI) | payer MEDICARE, OTHER, SELFPAY ==
--- NOTE | 2021-06-22 | DI.US.S_ITS ---
PROCEDURE: US PERIPH VENOUS LOW EXTREM LT INDICATIONS: SUPERFICIAL VENOUS THROMBOSIS TECHNIQUE: Real-time imaging, as well as color and pulse Doppler interrogation, were performed of the lower extremity deep veins from the inguinal ligament to the popliteal fossa. COMPARISON: None. FINDINGS: The common femoral, femoral and popliteal veins are normally compressible, and free of intraluminal thrombus. Color and pulse Doppler demonstrate normal phasic intraluminal flow. There is normal augmentation response to distal compression maneuver. There is partially occlusive thrombus seen within the superficial veins from the proximal thigh to the mid calf. At the site of pain involving the lateral/mid calf, no focal ultrasound abnormalities are seen. IMPRESSION: Partially occlusive superficial L venous thrombosis can be seen involving the proximal thigh to the mid calf. Negative for deep venous thrombosis. Dictated by: Gui Jansen M.D. on 06/22/2021 at 15:31 Approved by: Gui Jansen M.D. on 06/22/2021 at 15:32
== END ==
PROVIDERS: PCP Naturopath; Referring Provider Naturopath; Visit Provider Naturopath
DX: I82.812 Embolism and thrombosis of superficial veins of left lower extremity (principal)
CPT/HCPCS: 93971

== ENCOUNTER → 2021-07-24 09:56 | Outpatient (CLI) | payer MEDICARE, OTHER, SELFPAY ==
--- NOTE | 2021-07-24 | DI.MG.S_ITS ---
BILATERAL DIGITAL SCREENING MAMMOGRAM 3D/2D WITH CAD: 07/24/2021 CLINICAL: Routine screening. Comparison is made to exams dated: 05/28/2020 mammogram, 07/23/2018 mammogram, and 06/21/2017 mammogram - [facility]. The tissue of both breasts is heterogeneously dense. This may lower the sensitivity of mammography. Current study was also evaluated with a Computer Aided Detection (CAD) system. No significant masses, calcifications, or other findings are seen in either breast. There has been no significant interval change. IMPRESSION: NEGATIVE There is no mammographic evidence of malignancy. A 1 year screening mammogram is recommended. This exam was interpreted at Station ID: [id number]. NOTE: For mammograms, a report in lay terms will be sent to the patient. Approximately 15% of breast malignancies will not be visualized mammographically. In the management of a palpable breast mass, a negative mammogram must not discourage biopsy of a clinically suspicious lesion. Electronically Signed By: Tim joseph/hellen:07/24/2021 12:17:39 letter sent: Normal Exam ACR BI-RADS Category 1: Negative [id number]
== END ==
PROVIDERS: PCP Naturopath; Referring Provider Naturopath; Visit Provider Naturopath
DX: Z12.31 Encounter for screening mammogram for malignant neoplasm of breast (principal)
CPT/HCPCS: 77063; 77067

== ENCOUNTER → 2022-04-20 08:44 | Outpatient (CLI) | payer MEDICARE, OTHER, SELFPAY ==
[2022-04-20 10:30] LABS: Add Manual Diff / Slide Review NO; Basophils Absolute Auto 0 /uL (0-100); Basophils Percent Auto 1.2 % (0-2); Eosinophils Absolute Auto 100 /uL (0-450); Eosinophils Percent Auto 2.6 % (2-4); Hematocrit 33.3 % (36-46); Hemoglobin 10.5 g/dL (12.0-16.0); Lymphocytes Absolute Auto 1400 /uL (1100-4500); Lymphocytes Percent Auto 38.8 % (25-40); Mean Corpuscular HGB Conc 31.5 % (30-36); Mean Corpuscular Hemoglobin 22.6 PG (26-34); Mean Corpuscular Volume 71.6 fL (80-100); Monocytes Absolute Auto 300 /uL (0-900); Monocytes Percent Auto 8.9 % (3-14); Neutrophils Absolute Auto 1700 /uL (1500-7000); Neutrophils Percent Auto 48.5 % (50-75); Platelet Count 222 X10^3/uL (150-400); Red Blood Cell Count 4.66 X10^6/uL (4.0-5.2); White Blood Cell Count 3.5 X10^3/uL (4.5-11.0)
[2022-04-20 11:10] LABS: Alanine Aminotransferase 20 IU/L (<35); Albumin Globulin Ratio 1.3 (1.0-2.8); Alkaline Phosphatase 73 U/L (38-126); Aspartate Aminotransferase 29 IU/L (14-36); BUN Creatinine Ratio 16.4 (6-22); Bilirubin Total 0.5 mg/dL (0.2-1.3); Blood Urea Nitrogen 11 mg/dL (7-17); Calcium 9.4 mg/dL (8.4-10.2); Carbon Dioxide 27 mmol/L (22-32); Chloride 104 mmol/L (98-107); Cholesterol 176 mg/dL (140-199); Estimated Glomerular Filt Rate > 60 mL/min (>60); Globulin 3.1 g/dL (1.7-4.1); Glucose 87 mg/dL (80-110); HDL Cholesterol 72 mg/dL (40-60); HEMOLYSIS < 15 (0-50); LDL Cholesterol Calculated 91 mg/dL (<100); Potassium 4.3 mmol/L (3.4-5.1); Sodium 135 mmol/L (137-145); Total Protein 7.1 g/dL (6.3-8.2); Triglycerides 65 mg/dL (35-150)
[2022-04-20 11:18] LABS: Free T3, Triiodothyronine Free 3.84 pg/mL (2.77-5.27); Free T4, Direct Thyroxine 0.91 ng/dL (0.78-2.19)
[2022-04-20 11:32] LABS: Thyroid Stimulating Hormone 0.031 uIU/mL (0.47-4.68)
== END ==
PROVIDERS: PCP Internal Medicine; Referring Provider Naturopath; Visit Provider Naturopath
DX: E03.9 Hypothyroidism, unspecified (principal); Z00.00 Encounter for general adult medical examination without abnormal findings
CPT/HCPCS: 36415; 80053; 80061; 84439; 84443; 84481; 85025

== ENCOUNTER → 2022-05-03 11:59 | Outpatient (CLI) | payer MEDICARE, OTHER, SELFPAY ==
[2022-05-03 12:37] LABS: Add Manual Diff / Slide Review NO; Basophils Absolute Auto 0 /uL (0-100); Basophils Percent Auto 0.8 % (0-2); Eosinophils Absolute Auto 100 /uL (0-450); Eosinophils Percent Auto 1.2 % (2-4); Hematocrit 33.6 % (36-46); Hemoglobin 10.8 g/dL (12.0-16.0); Lymphocytes Absolute Auto 1900 /uL (1100-4500); Lymphocytes Percent Auto 38.6 % (25-40); Mean Corpuscular HGB Conc 32.2 % (30-36); Mean Corpuscular Hemoglobin 23.6 PG (26-34); Mean Corpuscular Volume 73.2 fL (80-100); Monocytes Absolute Auto 400 /uL (0-900); Monocytes Percent Auto 7.1 % (3-14); Neutrophils Absolute Auto 2600 /uL (1500-7000); Neutrophils Percent Auto 52.3 % (50-75); Platelet Count 228 X10^3/uL (150-400); Red Blood Cell Count 4.59 X10^6/uL (4.0-5.2); Red Cell Distribution Width 21.1 % (11.6-14.8)
[2022-05-03 13:03] LABS: HEMOLYSIS < 15 (0-50); Iron 248 ug/dL (37-170)
[2022-05-03 13:13] LABS: Percent Iron Saturation 55 % (15-50); Total Iron Binding Capacity 454 ug/dL (265-497); Transferrin 336 mg/dL (206-381)
[2022-05-03 13:24] LABS: Anisocytosis 1+
[2022-05-03 13:25] LABS: Microcytosis 1+
[2022-05-03 13:27] LABS: Ferritin 13 ng/mL (11-264)
[2022-05-03 13:41] LABS: Vitamin B12 681 pg/mL (239-931)
[2022-05-04 21:39] LABS: Tissue Transglutaminase IgG <2 U/mL (0-5)
== END ==
PROVIDERS: PCP Internal Medicine; Referring Provider Internal Medicine; Visit Provider Internal Medicine
DX: D50.9 Iron deficiency anemia, unspecified (principal); E53.8 Deficiency of other specified B group vitamins; K90.0 Celiac disease
CPT/HCPCS: 36415; 82607; 82728; 83516; 83540; 83550; 85025

== ENCOUNTER → 2022-05-08 15:13 | Outpatient (CLI) | payer MEDICARE, OTHER, SELFPAY | PROVIDERS: PCP Internal Medicine; Referring Provider Internal Medicine; Visit Provider Internal Medicine | DX: M85.89 Other specified disorders of bone density and structure, multiple sites (principal); N95.1 Menopausal and female climacteric states | CPT/HCPCS: 77080 ==

== ENCOUNTER → 2022-05-12 10:32 | Outpatient (CLI) | payer MEDICARE, OTHER, SELFPAY ==
[2022-05-12 11:39] LABS: Occult Blood 1 Negative (Negative); Occult Blood 2 Negative (Negative); Occult Blood 3 Negative (Negative)
== END ==
PROVIDERS: PCP Internal Medicine; Referring Provider Internal Medicine; Visit Provider Internal Medicine
DX: D50.9 Iron deficiency anemia, unspecified (principal)
CPT/HCPCS: 82270

== ENCOUNTER → 2022-07-04 14:11 | Outpatient (CLI) | payer MEDICARE, OTHER, SELFPAY ==
[2022-07-04 15:14] LABS: Hematocrit 39.3 % (36-46); Hemoglobin 13.1 g/dL (12.0-16.0); Mean Corpuscular HGB Conc 33.4 % (30-36); Mean Corpuscular Hemoglobin 28.8 PG (26-34); Mean Corpuscular Volume 86.3 fL (80-100); Platelet Count 214 X10^3/uL (150-400); Red Blood Cell Count 4.56 X10^6/uL (4.0-5.2); Red Cell Distribution Width 21.9 % (11.6-14.8); White Blood Cell Count 4.6 X10^3/uL (4.5-11.0)
[2022-07-04 15:44] LABS: HEMOLYSIS < 15 (0-50); Iron 56 ug/dL (37-170)
[2022-07-04 15:56] LABS: Percent Iron Saturation 16 % (15-50); Total Iron Binding Capacity 343 ug/dL (265-497); Transferrin 290 mg/dL (206-381)
[2022-07-04 16:00] LABS: Vitamin D 25 Hydroxy (D3) 78.6 ng/mL (30.0-100.0)
[2022-07-04 17:34] LABS: Ferritin 20 ng/mL (11-264)
== END ==
PROVIDERS: PCP Internal Medicine; Referring Provider Internal Medicine; Visit Provider Internal Medicine
DX: D50.9 Iron deficiency anemia, unspecified (principal); E55.9 Vitamin D deficiency, unspecified
CPT/HCPCS: 36415; 82306; 82728; 83540; 83550; 85027

== ENCOUNTER → 2022-08-01 16:01 | Outpatient (CLI) | payer MEDICARE, OTHER, SELFPAY ==
--- NOTE | 2022-08-01 16:05 | DI.MG.S_ITS ---
BILATERAL DIGITAL SCREENING MAMMOGRAM 3D/2D WITH CAD: 08/01/2022 CLINICAL: Routine screening. Comparison is made to exams dated: 07/24/2021 mammogram, 05/28/2020 mammogram, and 07/23/2018 mammogram - [facility]. Both breasts are heterogeneously dense, which may obscure small masses (category c / 51-75% glandular tissue). Current study was also evaluated with a Computer Aided Detection (CAD) system. No significant masses, calcifications, or other findings are seen in either breast. There has been no significant interval change. IMPRESSION: NEGATIVE There is no mammographic evidence of malignancy. A 1 year screening mammogram is recommended. Based on the Tyrer Cuzick model (a risk assessment model) the patient's lifetime risk is 7.8% and her 10 year risk is 4.6%. According to the ACR, ACS, and NCCN guidelines, an annual breast MRI exam along with mammogram is recommended if the patient's lifetime risk is 20% or greater. This exam was interpreted at Station ID: [id number]. NOTE: For mammograms, a report in lay terms will be sent to the patient. Approximately 15% of breast malignancies will not be visualized mammographically. In the management of a palpable breast mass, a negative mammogram must not discourage biopsy of a clinically suspicious lesion. Electronically Signed By: Luis Alberto vasquez/hellen:08/02/2022 09:40:58 copy to: Stefan Simmons letter sent: Normal Exam ACR BI-RADS Category 1: Negative [id number]
== END ==
PROVIDERS: PCP Internal Medicine; Referring Provider Internal Medicine; Visit Provider Naturopath
DX: Z12.31 Encounter for screening mammogram for malignant neoplasm of breast (principal)
CPT/HCPCS: 77063; 77067

== ENCOUNTER → 2022-10-09 13:59 | Outpatient (CLI) | payer MEDICARE, OTHER, SELFPAY ==
[2022-10-09 15:37] LABS: Hematocrit 40.3 % (36-46); Hemoglobin 13.8 g/dL (12.0-16.0); Mean Corpuscular HGB Conc 34.1 % (30-36); Mean Corpuscular Hemoglobin 31.7 PG (26-34); Mean Corpuscular Volume 92.9 fL (80-100); Platelet Count 214 X10^3/uL (150-400); Red Blood Cell Count 4.34 X10^6/uL (4.0-5.2); Red Cell Distribution Width 12.5 % (11.6-14.8); White Blood Cell Count 4.8 X10^3/uL (4.5-11.0)
[2022-10-09 16:08] LABS: HEMOLYSIS < 15 (0-50); Iron 69 ug/dL (37-170)
[2022-10-09 16:21] LABS: Percent Iron Saturation 20 % (15-50); Total Iron Binding Capacity 350 ug/dL (265-497); Transferrin 249 mg/dL (206-381)
[2022-10-09 16:37] LABS: Ferritin 25 ng/mL (11-264)
== END ==
PROVIDERS: PCP Internal Medicine; Referring Provider Internal Medicine; Visit Provider Internal Medicine
DX: D50.9 Iron deficiency anemia, unspecified (principal)
CPT/HCPCS: 36415; 82728; 83540; 83550; 85027

== ENCOUNTER → 2023-02-20 10:52 | Outpatient (CLI) | payer OTHER, MEDICARE, SELFPAY ==
--- NOTE | 2023-02-20 | DI.RAD.S_ITS ---
PROCEDURE: XR CHEST 2V INDICATIONS: COUGH TECHNIQUE: 2 views of the chest were acquired. COMPARISON: None. FINDINGS: Surgical changes and devices: None. Lungs and pleura: Lungs are clear. No pleural effusions or pneumothorax. Mediastinum: Mediastinal contours are normal. Heart size is normal. Moderate hiatal hernia. Bones and chest wall: No suspicious bony abnormalities. Soft tissues appear unremarkable. IMPRESSION: No acute cardiopulmonary process. Dictated by: Diego Pimentel M.D. on 02/20/2023 at 12:37 Approved by: Diego Pimentel M.D. on 02/20/2023 at 12:37
[2023-02-20 12:36] LABS: Add Manual Diff / Slide Review NO; Basophils Absolute Auto 100 /uL (0-100); Basophils Percent Auto 1.1 % (0-2); Eosinophils Absolute Auto 100 /uL (0-450); Eosinophils Percent Auto 1.8 % (2-4); Hematocrit 40.2 % (36-46); Hemoglobin 13.6 g/dL (12.0-16.0); Lymphocytes Absolute Auto 1500 /uL (1100-4500); Mean Corpuscular HGB Conc 33.8 % (30-36); Mean Corpuscular Hemoglobin 32.1 PG (26-34); Mean Corpuscular Volume 95.1 fL (80-100); Monocytes Absolute Auto 300 /uL (0-900); Monocytes Percent Auto 6.3 % (3-14); Neutrophils Absolute Auto 2800 /uL (1500-7000); Neutrophils Percent Auto 58.8 % (50-75); Platelet Count 213 X10^3/uL (150-400); Red Blood Cell Count 4.22 X10^6/uL (4.0-5.2); Red Cell Distribution Width 12.4 % (11.6-14.8); White Blood Cell Count 4.8 X10^3/uL (4.5-11.0)
[2023-02-20 13:15] LABS: Thyroid Stimulating Hormone 2.33 uIU/mL (0.47-4.68)
[2023-02-20 13:17] LABS: Ferritin 24 ng/mL (11-264)
== END ==
PROVIDERS: PCP Internal Medicine; Referring Provider Naturopath; Visit Provider Naturopath
DX: R05.9 Cough, unspecified (principal); D64.9 Anemia, unspecified; E03.9 Hypothyroidism, unspecified
CPT/HCPCS: 36415; 71046; 82728; 84443; 85025

== ENCOUNTER → 2023-04-24 15:14 | Outpatient (CLI) | payer OTHER, MEDICARE, SELFPAY | PROVIDERS: PCP Internal Medicine; Referring Provider Internal Medicine; Visit Provider Internal Medicine | DX: J45.30 Mild persistent asthma, uncomplicated (principal) | CPT/HCPCS: 94060; 94726; 94729 ==

== ENCOUNTER → 2023-07-08 12:16 | Outpatient (CLI) | payer OTHER, MEDICARE, SELFPAY ==
[2023-07-08 13:10] LABS: Hematocrit 37.8 % (36-46); Hemoglobin 13.2 g/dL (12.0-16.0); Mean Corpuscular HGB Conc 34.9 % (30-36); Mean Corpuscular Hemoglobin 32.4 PG (26-34); Mean Corpuscular Volume 92.6 fL (80-100); Platelet Count 225 X10^3/uL (150-400); Red Blood Cell Count 4.08 X10^6/uL (4.0-5.2); Red Cell Distribution Width 12.2 % (11.6-14.8); White Blood Cell Count 5.2 X10^3/uL (4.5-11.0)
[2023-07-08 13:27] LABS: HEMOLYSIS < 15 (0-50); Iron 123 ug/dL (37-170)
[2023-07-08 13:39] LABS: Percent Iron Saturation 39 % (15-50); Total Iron Binding Capacity 316 ug/dL (265-497); Transferrin 280 mg/dL (206-381)
[2023-07-08 13:52] LABS: Alanine Aminotransferase 22 IU/L (<35); Albumin 4.1 g/dL (3.5-5.0); Albumin Globulin Ratio 1.4 (1.0-2.8); Alkaline Phosphatase 71 U/L (38-126); Aspartate Aminotransferase 28 IU/L (14-36); BUN Creatinine Ratio 19.7 (6-22); Bilirubin Total 0.5 mg/dL (0.2-1.3); Blood Urea Nitrogen 15 mg/dL (7-17); Calcium 10.4 mg/dL (8.4-10.2); Carbon Dioxide 27 mmol/L (22-32); Chloride 102 mmol/L (98-107); Cholesterol 201 mg/dL (140-199); Estimated Glomerular Filt Rate > 60 mL/min (>60); Globulin 2.9 g/dL (1.7-4.1); Glucose 83 mg/dL (80-110); HDL Cholesterol 78 mg/dL (40-60); HEMOLYSIS < 15 (0-50); LDL Cholesterol Calculated 106 mg/dL (<100); Potassium 4.2 mmol/L (3.4-5.1); Sodium 134 mmol/L (137-145); Triglycerides 87 mg/dL (35-150)
[2023-07-08 13:58] LABS: TSH w/ Reflex to FT4 2.02 uIU/mL (0.47-4.68)
[2023-07-08 14:24] LABS: Ferritin 24 ng/mL (11-264)
== END ==
PROVIDERS: PCP Internal Medicine; Referring Provider Internal Medicine; Visit Provider Internal Medicine
DX: D50.9 Iron deficiency anemia, unspecified (principal); E03.9 Hypothyroidism, unspecified; R03.0 Elevated blood-pressure reading, without diagnosis of hypertension; E78.2 Mixed hyperlipidemia
CPT/HCPCS: 36415; 80053; 80061; 82728; 83540; 83550; 84443; 85027

== ENCOUNTER → 2023-08-05 16:46 | Outpatient (CLI) | payer OTHER, MEDICARE, SELFPAY ==
--- NOTE | 2023-08-05 | DI.MG.S_ITS ---
BILATERAL DIGITAL SCREENING MAMMOGRAM 3D/2D WITH CAD: 08/05/2023 CLINICAL: Routine screening. Comparison is made to exams dated: 08/01/2022 mammogram, 07/24/2021 mammogram, and 05/28/2020 mammogram - [facility]. Both breasts are heterogeneously dense, which may obscure small masses (category c / 51-75% glandular tissue). Current study was also evaluated with a Computer Aided Detection (CAD) system. No significant masses, calcifications, or other findings are seen in either breast. There has been no significant interval change. IMPRESSION: NEGATIVE There is no mammographic evidence of malignancy. A 1 year screening mammogram is recommended. Based on the Tyrer Cuzick model (a risk assessment model) the patient's lifetime risk is 7.4% and her 10 year risk is 4.7%. According to the ACR, ACS, and NCCN guidelines, an annual breast MRI exam along with mammogram is recommended if the patient's lifetime risk is 20% or greater. This exam was interpreted at Station ID: [id number]. NOTE: For mammograms, a report in lay terms will be sent to the patient. Approximately 15% of breast malignancies will not be visualized mammographically. In the management of a palpable breast mass, a negative mammogram must not discourage biopsy of a clinically suspicious lesion. Electronically Signed By: Mckenzie leach/hellen:08/06/2023 09:42:18 letter sent: Normal Exam ACR BI-RADS Category 1: Negative [id number]
== END ==
PROVIDERS: PCP Internal Medicine; Referring Provider Internal Medicine; Visit Provider Internal Medicine
DX: Z12.31 Encounter for screening mammogram for malignant neoplasm of breast (principal)
CPT/HCPCS: 77063; 77067

== ENCOUNTER → 2024-07-13 15:25 | Outpatient (CLI) | payer OTHER, MEDICARE, SELFPAY ==
[2024-07-13 16:13] LABS: Hematocrit 40.6 % (36-46); Hemoglobin 13.8 g/dL (12.0-16.0); Mean Corpuscular Hemoglobin 32.3 PG (26-34); Mean Corpuscular Volume 95.1 fL (80-100); Platelet Count 196 X10^3/uL (150-400); Red Blood Cell Count 4.27 X10^6/uL (4.0-5.2); White Blood Cell Count 4.8 X10^3/uL (4.5-11.0)
[2024-07-13 16:32] LABS: HEMOLYSIS < 15 (0-50); Iron 78 ug/dL (37-170)
[2024-07-13 16:40] LABS: Alanine Aminotransferase 26 IU/L (<35); Albumin 4.4 g/dL (3.5-5.0); Albumin Globulin Ratio 1.6 (1.0-2.8); Alkaline Phosphatase 61 U/L (38-126); Aspartate Aminotransferase 39 IU/L (14-36); BUN Creatinine Ratio 18.2 (6-22); Bilirubin Total 0.5 mg/dL (0.2-1.3); Blood Urea Nitrogen 14 mg/dL (7-17); Calcium 10.2 mg/dL (8.4-10.2); Carbon Dioxide 26 mmol/L (22-32); Chloride 102 mmol/L (98-107); Cholesterol 158 mg/dL (140-199); Estimated Glomerular Filt Rate > 60 mL/min (>60); Globulin 2.8 g/dL (1.7-4.1); Glucose 74 mg/dL (80-110); HDL Cholesterol 77 mg/dL (40-60); HEMOLYSIS < 15 (0-50); LDL Cholesterol Calculated 67 mg/dL (<100); Potassium 3.8 mmol/L (3.4-5.1); Sodium 134 mmol/L (137-145); Total Protein 7.2 g/dL (6.3-8.2); Triglycerides 71 mg/dL (35-150)
[2024-07-13 16:43] LABS: Percent Iron Saturation 25 % (15-50); Total Iron Binding Capacity 309 ug/dL (265-497); Transferrin 276 mg/dL (206-381)
[2024-07-13 16:49] LABS: T4 Total Thyroxine 4.99 ug/dL (5.5-11.0)
[2024-07-13 17:03] LABS: TSH w/ Reflex to FT4 4.34 uIU/mL (0.47-4.68)
[2024-07-13 17:12] LABS: Ferritin 26 ng/mL (11-264)
[2024-07-15 07:11] LABS: Triiodothyronine T3 Total 98 ng/dL (71-180)
== END ==
LOC: LAB 15:27
PROVIDERS: PCP Internal Medicine; Referring Provider Internal Medicine; Visit Provider Internal Medicine
DX: D50.9 Iron deficiency anemia, unspecified (principal); E03.9 Hypothyroidism, unspecified; E78.2 Mixed hyperlipidemia
CPT/HCPCS: 80053; 80061; 82728; 83540; 83550; 84436; 84443; 84480; 85027

== ENCOUNTER → 2024-07-30 15:09 | Outpatient (CLI) | payer OTHER, MEDICARE, SELFPAY ==
--- NOTE | 2024-07-30 15:12 | DI.RAD.S_ITS ---
PROCEDURE: XR DEXA AXIAL SKELETON INDICATIONS: osteopenia COMPARISON: [facility], CR, XR DEXA AXIAL SKELETON, 05/08/2022, 15:32. FINDINGS: Lumbar Spine: Bone mineral density 0.774 g/cm2, T score -2.5. There is interval 0.6% decrease in total lumbar spine bone mineral density. Left Hip: Bone mineral density 0.704 g/cm2, T score -1.9. There is interval 3.1% decrease in left total hip bone mineral density. Left Femoral Neck: Bone mineral density 0.586 g/cm2, T score -2.4. There is interval 1.8% decrease in left femoral neck bone mineral density. Right Hip: Bone mineral density 0.729 g/cm2, T score -1.7. There is interval 5.8% decrease in right total hip bone mineral density. Right Femoral Neck: Bone mineral density 0.611 g/cm2, T score -2.1. There is interval 4.3% decrease in right femoral neck bone mineral density. Fracture Risk Calculation (when applicable): 10-year fracture risk of a major osteoporotic fracture 14 percent and of a hip fracture 3.5 percent. (T score greater or equal to -1.0 to: NORMAL) (T score from -1.1 to -2.4: OSTEOPENIA) (T score less than or equal to -2.5: OSTEOPOROSIS) IMPRESSION: Osteoporosis. Follow-up guidelines as follows: Osteoporosis: Consider a repeat DEXA and Vertebral Fracture Assessment (VFA) exam in 2 years or sooner if medically necessary, to reassess this patient's status. Osteopenia: Consider a repeat DEXA in 2-3 years to reassess this patient's status, or if there is a new clinical indication. Normal: Consider a repeat DEXA in 5 years or sooner, or if there is a new clinical indication. All treatment decisions require clinical judgment and consideration of individual patient factors, including patient preferences, comorbidities, previous drug use, risk factors not captured in the FRAX model (e.g., frailty, falls, vitamin D deficiency, increased bone turnover, interval significant decline in bone density ) and possible under- or over-estimation of fracture risk by FRAX. In addition, the NOF Guide recommends that FDA-approved medical therapies be considered in postmenopausal women and men age >= 50 years with a: * Hip or vertebral (clinical or morphometric) fracture * T-score of <=-2.5 at the spine or hip * Ten-year fracture probability by FRAX of >= 3% for hip fracture or >=20% for major osteoporotic fracture. People with diagnosed cases of osteoporosis or at high risk for fracture should have regular bone mineral density tests. For patients eligible for Medicare, routine testing is allowed once every 2 years. The testing frequency can be increased to one year for patients who have rapidly progressing disease, those who are receiving or discontinuing medical therapy to restore bone mass, or have additional risk factors. Dictated by: Florentino Paul M.D. on 07/31/2024 at 13:11 Approved by: Florentino Paul M.D. on 07/31/2024 at 13:13
== END ==
PROVIDERS: PCP Internal Medicine; Referring Provider Internal Medicine; Visit Provider Internal Medicine
DX: M81.0 Age-related osteoporosis without current pathological fracture (principal)
CPT/HCPCS: 77080

== ENCOUNTER → 2024-09-07 12:00 | Outpatient (CLI) | payer OTHER, MEDICARE, SELFPAY ==
[2024-09-07 12:31] LABS: Hematocrit 42.4 % (36-46); Hemoglobin 14.2 g/dL (12.0-16.0)
[2024-09-07 13:08] LABS: Free T3, Triiodothyronine Free 3.55 pg/mL (2.77-5.27); T4 Total Thyroxine 9.76 ug/dL (5.5-11.0)
[2024-09-07 13:21] LABS: Thyroid Stimulating Hormone 0.501 uIU/mL (0.47-4.68)
[2024-09-07 13:23] LABS: Ferritin 16 ng/mL (11-264)
== END ==
PROVIDERS: PCP Internal Medicine; Referring Provider Naturopath; Visit Provider Naturopath
DX: E61.1 Iron deficiency (principal); E03.9 Hypothyroidism, unspecified
CPT/HCPCS: 36415; 82728; 84436; 84443; 84481; 85014; 85018

== ENCOUNTER → 2024-11-27 11:02 | Outpatient (CLI) | payer OTHER, SELFPAY ==
--- NOTE | 2024-11-27 11:05 | DI.MG.S_ITS ---
MM screening mammo BI: 11/27/2024. BI-RADS: 1 CLINICAL: 69-year old female for bilateral screening mammogram. Tyrer-Cuzick lifetime risk of 4.9%. No personal or first-degree family history of breast cancer. PRIOR EXAMS 08/05/2023, 08/01/2022, 07/24/2021, 05/28/2020, 07/23/2018, 06/21/2017, 06/10/2015. MAMMOGRAPHY TECHNIQUE: 2D and 3D (tomosynthesis) digital mammographic views obtained, with additional images as needed for full coverage. Current study was also evaluated with a Computer Aided Detection (CAD) system. DENSITY C. The breasts are heterogeneously dense, which may obscure small masses. MAMMOGRAPHY FINDINGS Bilateral: No suspicious mass, asymmetry, microcalcification, or other abnormality seen. No significant change from comparison. IMPRESSION: * No evidence of malignancy. RECOMMENDATIONS Bilateral * Annual screening mammography. OVERALL ASSESSMENT CATEGORY BI-RADS-1: Negative. The [employer] recommends annual screening mammography beginning at age 40 for women with average risk of breast cancer. ELECTRONICALLY SIGNED: Lorenza Beckett M.D. on 11/27/2024 at 01:19:41 PM PT Interpreting Station ID: [id number]
[2024-11-27 12:55] LABS: Hematocrit 39.9 % (36-46); Hemoglobin 13.8 g/dL (12.0-16.0); Mean Corpuscular HGB Conc 34.5 % (30-36); Mean Corpuscular Hemoglobin 32.7 PG (26-34); Mean Corpuscular Volume 94.8 fL (80-100); Platelet Count 208 X10^3/uL (150-400); Red Blood Cell Count 4.21 X10^6/uL (4.0-5.2); Red Cell Distribution Width 12.5 % (11.6-14.8); White Blood Cell Count 4.7 X10^3/uL (4.5-11.0)
[2024-11-27 13:44] LABS: Ferritin 125 ng/mL (11-264)
== END ==
PROVIDERS: PCP Internal Medicine; Referring Provider Internal Medicine; Visit Provider Naturopath
DX: Z12.31 Encounter for screening mammogram for malignant neoplasm of breast (principal); R92.333 Mammographic heterogeneous density, bilateral breasts; E61.1 Iron deficiency
CPT/HCPCS: 36415; 77063; 77067; 82728; 85027

== ENCOUNTER → 2025-07-05 13:28 | Outpatient (CLI) | payer OTHER, SELFPAY ==
[2025-07-05 14:25] LABS: Hematocrit 40.2 % (36-46); Hemoglobin 13.7 g/dL (12.0-16.0)
[2025-07-05 16:27] LABS: Ferritin 184 ng/mL (11-264)
[2025-07-05 17:33] LABS: HEMOLYSIS < 15 (0-50); Iron 130 ug/dL (37-170)
[2025-07-05 17:46] LABS: Percent Iron Saturation 47 % (15-50); Total Iron Binding Capacity 276 ug/dL (265-497); Transferrin 239 mg/dL (206-381)
== END ==
PROVIDERS: PCP Internal Medicine; Referring Provider Naturopath; Visit Provider Naturopath
DX: D50.9 Iron deficiency anemia, unspecified (principal)
CPT/HCPCS: 36415; 82728; 83540; 83550; 85014; 85018

== ENCOUNTER → 2025-07-24 08:59 | Outpatient (CLI) | payer OTHER, SELFPAY ==
[2025-07-24 09:14] LABS: Hematocrit 42.1 % (36-46); Hemoglobin 14.5 g/dL (12.0-16.0); Mean Corpuscular HGB Conc 34.3 % (30-36); Mean Corpuscular Hemoglobin 32.1 PG (26-34); Mean Corpuscular Volume 93.5 fL (80-100); Platelet Count 192 X10^3/uL (150-400)
[2025-07-24 09:38] LABS: Alanine Aminotransferase 27 IU/L (<35); Albumin 4.1 g/dL (3.5-5.0); Albumin Globulin Ratio 1.6 (1.0-2.8); Alkaline Phosphatase 64 U/L (38-126); Blood Urea Nitrogen 8 mg/dL (7-17); Calcium 10.0 mg/dL (8.4-10.2); Carbon Dioxide 27 mmol/L (22-32); Chloride 105 mmol/L (98-107); Cholesterol 146 mg/dL (140-199); Estimated Glomerular Filt Rate > 60 mL/min (>60); Globulin 2.6 g/dL (1.7-4.1); Glucose 89 mg/dL (70-99); HDL Cholesterol 79 mg/dL (40-60); HEMOLYSIS < 15 (0-50); Potassium 4.0 mmol/L (3.4-5.1); Sodium 138 mmol/L (137-145); Total Protein 6.7 g/dL (6.3-8.2); Triglycerides 81 mg/dL (35-150)
[2025-07-24 10:06] LABS: TSH w/ Reflex to FT4 0.19 uIU/mL (0.47-4.68)
[2025-07-24 10:35] LABS: Free T4, Direct Thyroxine 1.70 ng/dL (0.78-2.19)
== END ==
PROVIDERS: PCP Internal Medicine; Referring Provider Internal Medicine; Visit Provider Internal Medicine
DX: R03.0 Elevated blood-pressure reading, without diagnosis of hypertension (principal); E78.2 Mixed hyperlipidemia; E03.9 Hypothyroidism, unspecified
CPT/HCPCS: 36415; 80053; 80061; 84439; 84443; 85027